=== PATIENT | female | born 1945 | race Caucasian/White ===

== ENCOUNTER 2017-12-22 05:34 | Day surgery (SDC) | payer OTHER ==
[~2017-12-22] VITALS: Ht 162.6 cm; Wt 110.2 kg
--- NOTE | ~2017-12-22 | O ---
[facility] [place] [address] OPERATIVE REPORT Name: NADEENELAINE Emmett Room #: DEP [facility].#: [id number] Admission: 12/22/17 Attend Phys: Tone Aquino MD Discharge: 12/22/17 Date of : 47 Report #: [id number] THIS REPORT FOR: //name// CC: Dr. David Aquino ____ ___ DATE OF SERVICE: 12/22/2017 SURGEON: Tone Aquino MD TOOL DRAWING CHECKER: None. PREOPERATIVE DIAGNOSIS: Bilateral upper lid dermatochalasia with superior visual field defect. POSTOPERATIVE DIAGNOSIS: Bilateral upper lid dermatochalasia with superior visual field defect. OPERATION PERFORMED: Bilateral upper lid functional blepharoplasty. ANESTHESIA: Local with IV sedation. COMPLICATIONS: None. INDICATIONS FOR SURGERY: This patient has acquired upper lid dermatochalasia with superior visual field loss both eyes because of excessive upper lid tissues to include skin and fat. Visual field testing demonstrates dense superior visual defects. Retesting with the upper lid elevated shows an improvement in visual field loss of over 30% and in excess of 12 degrees. The current procedures are undertaken in order to improve the patient's visual function. Informed consent was obtained to include but not limited to the loss of vision, bleeding, infection, scarring, failure to improve the problem and need for further surgery. DESCRIPTION OF OPERATION: The patient was taken to the operating room, where 2% Xylocaine with epinephrine mixed with equal parts of 0.75% Marcaine with Wydase was administered transcutaneously to each upper lid. The patient was then prepped and draped in the usual sterile fashion and a skin-marking pen was then utilized to outline an upper lid crease that was symmetrical on each side. Graefe forceps were then used to quantitate the redundant upper lid skin and it was similarly outlined. The incisions were then made with Manuela scissors and a skin-muscle flap removed from each side with high-temp cautery. Hemostasis was achieved with the monopolar cautery as it was throughout the case. The [address] [address] OPERATIVE REPORT Name: ELAINE SENIOR Room #: DEP [facility] M.R.#: [id number] Admission: 12/22/17 Attend Phys: Tone Aquino MD Discharge: 12/22/17 Date of : 47 Report #: [id number] orbital septum was then identified and the central and medial fat pads were inspected. The redundant soft tissue was then sculpted with the monopolar cautery. The upper lid crease was then reformed with tightening of the pretarsal orbicularis muscle. The upper lid crease was then further reformed with multiple interrupted 6-0 chromic sutures. The skin was then closed with a running 6-0 plain gut suture. The wound was then cleaned and dressed with ophthalmic antibiotic ointment and a nonstick dressing. The patient was transported to the recovery area, where cold compresses were applied, having tolerated the procedure well with no anesthetic or operative complications being noted. <ELECTRONICALLY SIGNED> By: Tone Aquino MD 01/05/18 0622 [id number] Tone Aquino MD /nt
[~2017-12-22 05:34] MED LIST: ADVAIR 250-501 EACH INH; ALLER-EASE180 MG PO; ASPIR 8181 MG PO; ATORVASTATIN CA40 MG PO; CELEXA40 MG PO; LEVOXYL150 MCG PO; PRINIVIL40 MG PO; PROAIR HFA8.5 GM INH; PROTONIX40 M1 PO; SINGULAIR 10 MG10 M1 PO; SUPER B-COMPL400 MCG SUBLING; XANAX 0.25 MG0.25 MG PO
[2017-12-22 12:42] VITALS: BP 135/65
== END 2017-12-22 14:23 | disposition home or self-care (01) ==
LOC: TBA 05:34 → OR 05:34 → TBA 05:35 → OR 08:43
DX: H02.834 Dermatochalasis of left upper eyelid (principal); H02.831 Dermatochalasis of right upper eyelid; H53.462 Homonymous bilateral field defects, left side; H53.461 Homonymous bilateral field defects, right side; I10 Essential (primary) hypertension; E78.00 Pure hypercholesterolemia, unspecified; J45.909 Unspecified asthma, uncomplicated; E03.9 Hypothyroidism, unspecified; K21.9 Gastro-esophageal reflux disease without esophagitis; G47.33 Obstructive sleep apnea (adult) (pediatric); Z87.891 Personal history of nicotine dependence; Z95.5 Presence of coronary angioplasty implant and graft; Z90.49 Acquired absence of other specified parts of digestive tract; Z98.890 Other specified postprocedural states; Z79.899 Other long term (current) drug therapy; Z90.710 Acquired absence of both cervix and uterus; Z88.2 Allergy status to sulfonamides; Z88.6 Allergy status to analgesic agent; Z79.82 Long term (current) use of aspirin
CPT/HCPCS: 50010; 50101; 50386; 50398; 51636; 56531; 62110; 62850; 70005

== ENCOUNTER → 2021-03-28 | Outpatient (CLI) | payer OTHER ==
[~2021-03-28] MED LIST changes: +ASA81BEC PO; +FLONASE 0.05%50 MCG NARES; +PROTONIX40 M4 PO
[2021-03-28 13:23] LABS: HEMATOCRIT 33.3 % (37.0-47.0); HEMOGLOBIN 10.9 gm/dL (12.0-15.0); MCHC 32.8 g/dL (28.0-37.0); MCV 85.6 fL (80.0-100.0); RBC 3.89 mil/uL (4.20-5.00); RDW 14.2 % (10.5-14.5); WBC 5.4 thou/uL (4.0-11.0)
[2021-03-28 13:39] LABS: URINE BILIRUBIN NEGATIVE (Negative); URINE BLOOD NEGATIVE (Negative); URINE CLARITY CLEAR; URINE COLOR YELLOW; URINE GLUCOSE-RANDOM* NEGATIVE (Negative); URINE KETONES NEGATIVE (Negative); URINE LEUKOCYTES-REFLEX NEGATIVE (Negative); URINE NITRITE-REFLEX NEGATIVE (Negative); URINE PROTEIN (DIPSTICK) NEGATIVE (Negative); URINE SPECIFIC GRAVITY 1.015 (1.005-1.035); URINE UROBILINOGEN 0.2 E.U./dl (0.2-1.0)
[2021-03-28 13:40] LABS: PROTIME 10.9 Seconds (10.5-12.1)
[2021-03-28 13:42] LABS: ALBUMIN 3.5 g/dL (3.4-5.0); CALCIUM 8.9 mg/dL (8.5-10.1); CREATININE 0.7 mg/dL (0.6-1.0)
== END ==
LOC: PAC 12:17
PROVIDERS: Orthopaedic Surgery; ATTEND Student in an Organized Health Care Education/Training Program
DX: M17.11 Unilateral primary osteoarthritis, right knee (principal); Z20.822 Contact with and (suspected) exposure to COVID-19

== ENCOUNTER 2021-04-02 07:50 | Observation (INO) | payer OTHER ==
[2021-04-02] VITALS (11 sets, daily range): BP systolic 119–190; BP diastolic 52–582
[~2021-04-02] VITALS: Ht 162.6 cm; Wt 120.7 kg
--- NOTE | ~2021-04-02 | O ---
[facility] [place] [address] OPERATIVE REPORT Name: ELAINE SENIOR Room #: 447-P [facility] MTushar#: [id number] Admission: 04/02/21 Attend Phys: Santos Jean MD Discharge: Date of : 47 Report #: [id number] THIS REPORT FOR: cc: Nancy Joaquin MD,Nancy Jean,Santos Barnett MD ~ DOC #: [id number] Santos Jean MD DATE OF SERVICE: 04/02/2021 PREOPERATIVE DIAGNOSIS: Bilateral knee osteoarthritis. POSTOPERATIVE DIAGNOSIS: Bilateral knee osteoarthritis. PROCEDURE: 1. Left total knee arthroplasty using [employer] robotic system. 2. Intraarticular cortisone injection, right knee. SURGEON: Santos Jean MD. INSTRUMENT LENS GRINDER APPRENTICE: Ngozi Renee PA-C Indication for delivery driver assistant throughout the case for extensive retraction, manipulation of the knee was required. This was supported by my delivery driver assistant. ANESTHESIA: LMA with an adductor canal block. IMPLANTS: [employer]hew size 6 Journey II BCS cobalt chrome femur, size 4 tibia, size 10 polyethylene and a size 32 patella. Tourniquet time was 52 minutes. ESTIMATED BLOOD LOSS: 25 mL COMPLICATIONS: None. SPECIMENS: None. CONDITION UPON LEAVING OR: Stable. INDICATIONS FOR PROCEDURE: The patient is a 76-year-old female with bilateral knee osteoarthritis. She elected for left total knee arthroplasty. While under anesthesia, she was requesting a right knee cortisone injection. DESCRIPTION OF PROCEDURE: Risks, benefits, alternatives, complications were discussed in detail with the patient including but not limited to risk of [facility] [address] [place] [address] OPERATIVE REPORT Name: ELAINE SENIOR Room #: 447-P [facility] Agustin Raymundo#: [id number] Admission: 04/02/21 Attend Phys: Santos Jean MD Discharge: Date of : 47 Report #: [id number] anesthesia, risk of damage to nerves, arteries, blood vessels, risk for infection, bleeding, risk for continued knee pain, need for reoperation. Informed consent was obtained from the patient. The left knee was appropriately marked in the preoperative holding area. IV Ancef was given for preoperative antibiotics. She was brought to the operating room and placed in the supine position on the operating room table. LMA anesthesia was induced without complication. Tourniquet was placed on the left thigh. Left lower extremity was prepped and draped in normal sterile fashion. Timeout was performed properly identifying the patient and procedure as well as instrumentation and implants. All in the operating room in agreement. Left lower extremity was exsanguinated, tourniquet was inflated. Tourniquet time was 52 minutes. Standard midline approach to the knee was made with 10 blade through the skin. Dissection was taken down sharply to the fascia. Deep flaps were developed medially and laterally. A fresh 10 blade was used to make a medial parapatellar arthrotomy and the knee was inspected. There was severe tricompartmental osteoarthritis. ACL and PCL were removed sharply. Reference pins were placed in the femur and the tibia. The knee was then digitally mapped using the [employer] robotic system. Intraoperative plan was made. We sized a size 6 femur and size 4 tibia and a 10 spacer. After acceptance of the intraoperative plan the distal femoral cut was made with a Navio bur. Distal femoral cutting block was pinned in place and chamfer cuts were made. Attention was then turned to the tibia. Remainder of the menisci were removed with Bovie cautery. Tibial resection guide was pinned in place using Navio for placement. Tibial resection was made. Flexion and extension gaps were then checked and found to have good balance in flexion and extension both medially and laterally. Tibia was sized and found to be a size 4. Size 4 tibial trial was placed, pinned and punched. A size 6 femoral trial was placed and the box cut was made. This was then trialed with a size 10 polyethylene. The size 10 polyethylene demonstrated 1-2 mm of laxity medially and laterally ____. A 9 mm of bone was resected from the posterior surface of the patella and a size 32 patellar trial button was placed. Knee was taken through range of motion, found to be stable, found to have good patellar tracking. Trial components were removed. Bone ends were thoroughly irrigated ____ tibia size 6 Journey II BCS cobalt chrome femur and a size 32 patella were cemented in place using standard cementation techniques. While the cement cured, a periarticular injection consisting of morphine, ropivacaine, epinephrine, Toradol was placed around the knee joint capsule. After the cement cured, the tourniquet was deflated. Hemostasis was obtained with Bovie cautery. The final size 10 polyethylene was placed. A gram of vancomycin was placed deep in the joint. The fascia was closed with 0 Vicryl. Skin was closed with 2-0 Vicryl, skin [place] and a CARLA dressing. The patient tolerated this procedure well and went to the recovery room under care of anesthesia postoperatively. Santos Jean MD [facility]/[address] [address] OPERATIVE REPORT Name: NADEENELAINE Christine Room #: 447-P [facility] Agustin Raymundo#: [id number] Admission: 04/02/21 Attend Phys: Santos Jean MD Discharge: Date of : 47 Report #: [id number] By: [id number] Santos Jean MD /nt
--- NOTE | 2021-04-02 17:38 | NUR ---
PATIENT TOLERATING REGULAR DIET WELL, PAIN MANAGED WITH PAIN MEDICATION PER MAR AND POLAR PACK, PATIENT WORKED WITH PT AFTER SURGERY, SCDS ON, VITALS STABLE, AFBRILE, ON 2L NASAL CANULA, AND CPAP AT BEDSIDE.
--- NOTE | 2021-04-03 04:00 | NUR ---
PT DID WELL GETTING UP TO THE BSC WITH CLOSE SBA. VOIDING ADEQUATELY USING CPAP AT [facility] WITH 02/2L -CONT PULSE OX IN PLACE. CARLA DRSG IN PLACE TO LEFT KNEE.. POLAR KYARA AND SCDS IN PLCAE. PT IS AFEBRILE. CONTINUES ON POST OP IVF.
[2021-04-03 04:37] VITALS: BP 129/64
[2021-04-03 04:42] LABS: ABSOLUTE NEUTROPHILS 9.6 thou/uL (1.4-8.2); BASOPHILS 0.1 % (0.0-2.0); HEMOGLOBIN 8.6 gm/dL (12.0-15.0); LYMPHOCYTES 12.6 % (24.0-44.0); MCHC 32.9 g/dL (28.0-37.0); MCV 85.1 fL (80.0-100.0); MONOCYTES 5.3 % (1.0-8.0); PLATELET COUNT 220 thou/uL (150-400); RBC 3.05 mil/uL (4.20-5.00); RDW 14.7 % (10.5-14.5); WBC 11.7 thou/uL (4.0-11.0)
[2021-04-03 04:47] LABS: CALCIUM 7.8 mg/dL (8.5-10.1); CREATININE 0.7 mg/dL (0.6-1.0); POTASSIUM 4.1 mmol/L (3.5-5.1)
[2021-04-03 07:55] VITALS: BP 120/55
--- NOTE | 2021-04-03 09:36 | NUR ---
ASSESSMENT: CM REVIEWED CHART AND MET WITH PATIENT. PT IS ALERT AND ORIENTED X4. PT IS S/P KNEE REPLACEMENT. PT REPORTS THAT SHE LIVES IN A HOUSE WITH HER . PT HAS 1-2 STEPS TO ENTER THE HOME AND NO STEPS SHE HAS TO USE ONCE INSIDE. PT REPORTS THAT SHE HAS A BORROWED WALKER AND PLANS ON USING IT. CM DISCUSSED CM COULD ATTEMPT TO GET HER HER OWN WALKER THROUGH INSURANCE BUT PT REPORTS SHE WILL JUST USE THE BORROWED ONE. PT REPORTS THAT SHE HAS OUTPATIENT THERAPY ARRANGED AT [facility] TO BEGIN ON FRIDAY. PT REPORTS HAVING A GRAB BAR IN THE SHOWER. PT REPORTS THAT HER DAUGHTER IS GOING TO HELP TAKE HER TO OUTPATIENT THERAPY. CM DISCUSSED ROLE. PT DOES NOT ANTICIPATE HAVING ANY NEEDS FROM CM. CM WILL CONTIUE TO FOLLOW. PT IS TO WORK WITH THERAPY.
--- NOTE | 2021-04-03 10:56 | NUR ---
Received awake on bed. Due medications given as prescribed, able to swallow meds w/o difficulty. Vital signs stable. On MS, not on telemetry; no complains and signs of chest pain, crushing sensation and heaviness. Assisted in ADLs. On room air during daytime and CPAP at HS. On regular diet- tolerating well; no nausea, no vomiting and no abdominal pain noted. Continent of bowel and blader, able to use bedside commode; walker, gait belt, falls bundle in place and post op knee protocol observed. With SL at R wrist. JOSE ANGEL hose, polar pack, SCDs in place; post op site C/D/I- no bleeding and drainage noted. Pending discharge orders once cleared by PT- Patient seen and examined by physical therapist DEVEN- cleared for discharge, CM informed as well- no needs; to provide transport- patient updated.
[2021-04-03 11:00] VITALS: BP 120/55
== END 2021-04-03 11:55 | disposition home or self-care (01) ==
LOC: OR 07:50 → 4S 13:35 → OR 14:09 → 4S 04-03 11:55
PROVIDERS: Nurse Practitioner; ADMIT Orthopaedic Surgery; ATTEND Orthopaedic Surgery
DX: M17.0 Bilateral primary osteoarthritis of knee (principal); I10 Essential (primary) hypertension; E03.9 Hypothyroidism, unspecified; J45.909 Unspecified asthma, uncomplicated; F41.9 Anxiety disorder, unspecified; G47.30 Sleep apnea, unspecified; Z88.2 Allergy status to sulfonamides; Z88.5 Allergy status to narcotic agent; Z88.8 Allergy status to other drugs, medicaments and biological substances
CPT/HCPCS: 50010; 50415; 50954; 51130; 51225; 51320; 52001; 52282; 53000; 53078; 56527; 56528; 57095; 57103; 57110; 57127; 57180; 58239; 62110; 62900; 70005